=== PATIENT | male | born 1955 | race Hispanic/Latino ===

== ENCOUNTER 2022-05-04 18:32 | Emergency (ER) | payer SELFPAY ==
[~2022-05-04] VITALS: Ht 165.1 cm; Wt 99.8 kg
[2022-05-04] MEDS ORDERED: AUGMENTIN 500-1 EACH PO (18:41)
[2022-05-04] MEDS ORDERED: ACETAMINOPHEN-1 EAC4 PO (18:41)
== END 2022-05-04 18:49 | disposition home or self-care (01) ==
LOC: ER 18:35
DX: B02.9 Zoster without complications (principal); H66.91 Otitis media, unspecified, right ear
CPT/HCPCS: 99283

== ENCOUNTER 2023-12-01 16:04 | Emergency (ER) | payer SELFPAY ==
[~2023-12-01] VITALS: Ht 165.1 cm; Wt 99.8 kg
[~2023-12-01 16:04] MED LIST: ACETAMINOPHEN-1 EAC4 PO; AUGMENTIN 500-1 EACH PO
[2023-12-01 16:33] VITALS: PULSE 57; RESP 18; TEMP 98.2
[2023-12-01 16:56] LABS: BASOPHILS # (AUTO) 0.1 (0.0-0.1); BASOPHILS % 0.6 % (0.0-1.0); EOSINOPHILS # (AUTO) 0.3 (0.0-0.4); HEMATOCRIT 43.3 % (38.2-49.6); HEMOGLOBIN 14.1 g/dL (14.0-18.0); LYMPHOCYTES # (AUTO) 2.7 (1.0-3.2); LYMPHOCYTES % 31.6 % (18.0-39.1); MEAN CORPUSCULAR HEMOGLOBIN 29.2 pg (28-32); MEAN CORPUSCULAR HGB CONC 32.6 g/dL (31-35); MEAN CORPUSCULAR VOLUME 89.6 fL (81-99); MONOCYTES # (AUTO) 0.6 (0.2-0.8); MONOCYTES % 6.9 % (4.4-11.3); NEUTROPHILS # (AUTO) 4.9 (2.1-6.9); NEUTROPHILS % 57.7 % (38.7-80.0); PLATELET COUNT 369 x10e3/uL (140-360); RED BLOOD COUNT 4.83 x10e6/uL (4.3-5.7); RED CELL DISTRIBUTION WIDTH 12.9 % (11.7-14.4); WHITE BLOOD COUNT 8.54 x10e3/uL (4.8-10.8)
[2023-12-01 17:10] LABS: ALBUMIN 3.9 g/dL (3.5-5.0); ANION GAP 12.9 mmol/L (8-16); BILIRUBIN,TOTAL 0.4 mg/dL (0.2-1.2); CALCIUM 9.1 mg/dL (8.4-10.2); CREATININE, SERUM 0.72 mg/dL (0.72-1.25); POTASSIUM 3.9 mmol/L (3.5-5.1); TOTAL PROTEIN 7.9 g/dL (6.5-8.1)
[2023-12-01] MEDS: ONDANSETRON HCL INJ 2MG/ML 2ML 2 MG/ML VIAL IV STA (17:17)
[2023-12-01] MEDS: KETOROLAC TROMETHAMINE 30 MG/ML VIAL IV STA (17:18)
[2023-12-01] MEDS: SODIUM CHLORIDE 0.9% 1000ML 1,000 ML IV STA (17:18)
[2023-12-01 17:37] LABS: CLARITY,URINE CLOUDY (CLEAR); COLOR,URINE YELLOW (YELLOW); LEUKOCYTE ESTERASE ,URINE TRACE (NEGATIVE); PH,URINE 7.5 (5 - 7)
[2023-12-01 17:38] LABS: BILIRUBIN,URINE NEGATIVE (NEGATIVE); GLUCOSE, URINE NEGATIVE (NEGATIVE); KETONES,URINE NEGATIVE (NEGATIVE); NITRITE,URINE NEGATIVE (NEGATIVE); PROTEIN,URINE DIPSTICK 1+ (NEGATIVE); URINE UROBILINOGEN 0.2 mg/dL (0.2 - 1)
[2023-12-01 17:57] LABS: BACTERIA,URINE MANY /HPF; EPITHELIAL CELLS,URINE FEW /LPF; RBC,URINE >50 /HPF (0-5); WBC,URINE (MAN) 21-50 /HPF (0-5)
[2023-12-01 17:58] LABS: AMORPHOUS SEDIMENT,URINE MANY (FEW); CALCIUM OXALATE CRYSTALS,UR FEW (FEW); MUCUS,URINE FEW (RARE)
[2023-12-01] MEDS ORDERED: CEFDINIR300 MG PO (18:13)
[2023-12-01] MEDS ORDERED: ONDANSETRON ODT4 MG PO (18:13)
[2023-12-01 18:25] VITALS: BP 148/85; PULSE 52; RESP 16; TEMP 97.7; O2SAT 100
== END 2023-12-01 18:30 | disposition home or self-care (01) ==
LOC: ER 17:05
DX: R11.2 Nausea with vomiting, unspecified (principal); N12 Tubulo-interstitial nephritis, not specified as acute or chronic; N20.0 Calculus of kidney
CPT/HCPCS: 36415; 74176; 80053; 81001; 85025; 87086; 99284; J0696; J1885; J2405; J7030